=== PATIENT | female | born 1990 | race Caucasian/White ===

== ENCOUNTER 2022-03-29 18:19 | Inpatient (IN) | payer BC ==
[~2022-03-29 18:19] MED LIST: GASTROGRAFIN 30 ML BOT ONE; Iopamidol 300 61% 100 ML VIAL FS ONE
[2022-03-29] MEDS ORDERED: Ondansetron PF 4 MG/2 ML Vial ONE (18:57)
[2022-03-29] MEDS ORDERED: Morphine 4 MG/ML VIAL ONE (18:58)
[2022-03-29 19:01] LABS: BHCG - Serum Negative (NEGATIVE); Pregs Control Background? CLEAR/WHITE (CLR/WHITE); Pregs Control Bar Appear? YES (CONTROL BAR)
[2022-03-29 19:04] LABS: #Basophils 0.1 10x3/uL (0.0-0.2); #Eosinphils 0.2 10x3/uL (0.0-0.5); #Monocytes 0.5 10x3/uL (0.0-1.1); %Basophils 1.1 % (0.0-2.0); %Eosinophils 3.7 % (0.0-6.0); %Lymphocytes 21.5 % (18.0-47.0); %Monocytes 7.7 % (0.0-10.0); %Neutrophils 65.7 % (40.0-75.0); Hemoglobin 11.9 g/dL (12.0-15.5); Mean Corpuscular HGB CONC 33.8 g/dL (32.0-36.0); Mean Corpuscular Hemoglobin 29.2 pg (27.0-33.0); Mean Corpuscular Volume 86.3 fl (81.6-98.3); Mean Platelet Volume 10.2 fl (7.4-10.4); Platelet Count 290 10x3/uL (150-450); Red Blood Cell (RBC) Count 4.08 10x6/uL (3.90-5.03); White Blood Cell (WBC) Count 6.1 10x3/uL (3.5-10.5)
[2022-03-29 19:07] LABS: ALT (SGPT) 319 U/L (8-55); AST (SGOT) 459 U/L (5-34); Albumin 4.7 g/dL (3.5-5.0); Alkaline Phosphatase 177 U/L (40-110); Anion Gap 14 mmol/L (10-20); BUN (Urea Nitrogen) 11 mg/dL (7.0-18.7); Bilirubin, Total 1.6 mg/dL (0.2-1.2); Calc. Creatinine Clearance 0 mL/min (70-130); Calcium 9.3 mg/dL (7.8-10.44); Carbon Dioxide 24 mmol/L (22-29); Chloride 105 mmol/L (98-107); Estimated GFR 102; Globulin 3.5 g/dL (2.4-3.5); Glucose 100 mg/dL (70-105); Potassium 3.6 mmol/L (3.5-5.1); Protein, Total 8.2 g/dL (6.0-8.3); Sodium 139 mmol/L (136-145)
[2022-03-29 19:18] LABS: Lipase 2624 U/L (8-78)
[2022-03-29 19:56] LABS: Bilirubin Neg (Negative); Blood, Urine 50 (Negative); Clarity Clear (Clear); Glucose, Urine (Dipstick) Normal (Negative); Ketone, Urine Negative (Negative); Leukocyte Negative (Negative); Nitrite Negative (Negative); Protein, Urine (Dipstick) Negative (Neg-Trace); Urobilinogen Normal mg/dL (Less than 2); pH, Urine 6.5 (5.0-9.0)
[2022-03-29 20:19] LABS: Bacteria/HPF 1+ HPF (None Seen); Squamous Epithelial 0-3 HPF (0-3); WBC/HPF 0-3 HPF (0-3)
[2022-03-29] MEDS ORDERED: Senokot S 8.6-50 MG TAB PO PRN (20:50)
[2022-03-29] MEDS ORDERED: Guaifenesin DM 100-10/5 ML UDCUP PO PRN (20:50)
[2022-03-29] MEDS ORDERED: Calcium Carbonate 500 MG ChewTAB PO PRN (20:50)
[2022-03-29 21:37] LABS: SARS-CoV-2 NAA Rapid Test Not Detected (NotDetected)
[2022-03-29] MEDS ORDERED: Piperacillin/Tazobactam 4.5 GM VIAL ONE (22:48)
[2022-03-30] MEDS ORDERED: Morphine 2 MG/ML VIAL SLOW IVP PRN (00:03)
[2022-03-30] MEDS ORDERED: Famotidine/PF 20 mg/2ml Vial SLOW IVP SCH (00:15)
[2022-03-30] MEDS: Morphine 4 MG/ML VIAL SLOW IVP PRN ×3 (00:18→16:23)
[2022-03-30] MEDS: Dextrose 5%-Lactated Ringers 1,000 ML IV SCH ×3 (00:20→17:27)
[2022-03-30] MEDS ORDERED: Lactated Ringer's 500 ML IV SCH (00:30)
[2022-03-30] MEDS ORDERED: FLU VACC QS2022-23(6MOS UP)/PF 60 MCG/0.5 ML SYRINGE IM ONE (01:45)
[2022-03-30 06:29] LABS: #Eosinphils 0.2 10x3/uL (0.0-0.5); #Monocytes 0.5 10x3/uL (0.0-1.1); #Neutrophils 2.1 10x3/uL (1.5-8.4); %Basophils 1.1 % (0.0-2.0); %Eosinophils 4.8 % (0.0-6.0); %Lymphocytes 25.1 % (18.0-47.0); %Monocytes 12.5 % (0.0-10.0); %Neutrophils 56.2 % (40.0-75.0); Hemoglobin 9.8 g/dL (12.0-15.5); Mean Corpuscular HGB CONC 33.1 g/dL (32.0-36.0); Mean Corpuscular Hemoglobin 28.5 pg (27.0-33.0); Mean Platelet Volume 10.7 fl (7.4-10.4); Platelet Count 197 10x3/uL (150-450); RBC Distribution Width 13.2 % (11.5-14.5); Red Blood Cell (RBC) Count 3.44 10x6/uL (3.90-5.03); White Blood Cell (WBC) Count 3.8 10x3/uL (3.5-10.5)
[2022-03-30 07:09] LABS: ALT (SGPT) 404 U/L (8-55); AST (SGOT) 444 U/L (5-34); Albumin 3.5 g/dL (3.5-5.0); Alkaline Phosphatase 170 U/L (40-110); Anion Gap 11 mmol/L (10-20); BUN (Urea Nitrogen) 9 mg/dL (7.0-18.7); Bilirubin, Total 0.9 mg/dL (0.2-1.2); Calc. Creatinine Clearance 111 mL/min (70-130); Calcium 8.3 mg/dL (7.8-10.44); Carbon Dioxide 24 mmol/L (22-29); Cardiac Risk 2.2 (Less than 4.5); Chloride 108 mmol/L (98-107); Cholesterol 140 mg/dl (< 200 Desired); Estimated GFR 112; Globulin 2.5 g/dL (2.4-3.5); Glucose 114 mg/dL (70-105); HDL Cholesterol 63 mg/dL (>60 Neg Risk); LDL Cholesterol, Calculated 69 mg/dL; Lipase Greater than 1000 U/L (8-78); Potassium 3.8 mmol/L (3.5-5.1); Sodium 139 mmol/L (136-145); Triglycerides 39 mg/dL (Less than 150)
[2022-03-30 08:07] LABS: Hep B Surf Ag NonReactive S/CO (NonReactive)
[2022-03-30] MEDS: Ondansetron PF 4 MG/2 ML Vial IVP PRN ×2 (09:19→16:23)
[2022-03-30] MEDS: Enoxaparin Sodium 40 MG/0.4 ML SYRINGE SC SCH (09:20)
[2022-03-30] MEDS: Famotidine/PF 20 mg/2ml Vial SLOW IVP SCH ×2 (09:20→21:04)
[2022-03-30 13:47] LABS: HBCM Index 0.09 S/CO (0-0.79); Hep A IgM AB Non-Reactive (NonReactive); Hep A IgM S/CO 0.21 S/CO (0-0.79); Hep C IgG Ab Non-Reactive (NonReactive); Hep C Index 0.11 S/CO (0-0.79); Hepatitis B Core IgM Abs Non-Reactive (NonReactive)
[2022-03-30] MEDS ORDERED: Acetaminophen 325 MG TAB PO SCH (19:45)
[2022-03-31] MEDS: Dextrose 5%-Lactated Ringers 1,000 ML IV SCH ×3 (00:52→17:47)
[2022-03-31 02:37] VITALS: BMI 21.1
[2022-03-31 06:17] LABS: ALT (SGPT) 292 U/L (8-55); AST (SGOT) 133 U/L (5-34); Albumin 3.6 g/dL (3.5-5.0); Alkaline Phosphatase 145 U/L (40-110); Anion Gap 9 mmol/L (10-20); BUN (Urea Nitrogen) 5 mg/dL (7.0-18.7); Bilirubin, Total 0.4 mg/dL (0.2-1.2); Calc. Creatinine Clearance 119 mL/min (70-130); Calcium 8.7 mg/dL (7.8-10.44); Carbon Dioxide 28 mmol/L (22-29); Chloride 106 mmol/L (98-107); Estimated GFR 120; Globulin 2.3 g/dL (2.4-3.5); Glucose 117 mg/dL (70-105); Lipase 234 U/L (8-78); Potassium 3.8 mmol/L (3.5-5.1); Protein, Total 5.9 g/dL (6.0-8.3); Sodium 139 mmol/L (136-145)
[2022-03-31 06:38] LABS: #Eosinphils 0.2 10x3/uL (0.0-0.5); #Monocytes 0.4 10x3/uL (0.0-1.1); #Neutrophils 1.1 10x3/uL (1.5-8.4); %Basophils 1.3 % (0.0-2.0); %Lymphocytes 42.3 % (18.0-47.0); %Monocytes 14.8 % (0.0-10.0); %Neutrophils 36.6 % (40.0-75.0); Hemoglobin 9.3 g/dL (12.0-15.5); Mean Corpuscular HGB CONC 32.6 g/dL (32.0-36.0); Mean Corpuscular Hemoglobin 28.4 pg (27.0-33.0); Mean Corpuscular Volume 87.2 fl (81.6-98.3); Mean Platelet Volume 10.7 fl (7.4-10.4); Platelet Count 204 10x3/uL (150-450); RBC Distribution Width 13.2 % (11.5-14.5); Red Blood Cell (RBC) Count 3.27 10x6/uL (3.90-5.03)
[2022-03-31] MEDS: Enoxaparin Sodium 40 MG/0.4 ML SYRINGE SC SCH (09:05)
[2022-03-31] MEDS: Famotidine/PF 20 mg/2ml Vial SLOW IVP SCH (09:05)
[2022-03-31] MEDS ORDERED: Bupivacaine 0.25% HCL 30 ML VIAL ONE (10:10)
[2022-03-31] MEDS ORDERED: EPINEPHrine 1 MG/ML AMP ONE (10:10)
[2022-03-31] MEDS ORDERED: Iopamidol 0 ML ONE (10:10)
[2022-03-31] MEDS ORDERED: PROPOFOL 20 ML ONE (11:33)
[2022-03-31] MEDS ORDERED: Fentanyl 100 MCG/2 ML VIAL ONE ×2 (11:34→13:22)
[2022-03-31] MEDS ORDERED: CEFAZOLIN 2 GM VIAL ONE (11:40)
[2022-03-31] MEDS ORDERED: Midazolam HCl 2 mg/2 ml Vial ONE (11:44)
[2022-03-31] MEDS ORDERED: ePHEDrine Sulfate 50 MG/10 ML VIAL ONE (12:12)
[2022-03-31] MEDS ORDERED: PHENYLEPHRINE-NS 100 MCG/ML 10 ML SYRINGE ONE (12:14)
[2022-03-31] MEDS ORDERED: Dexamethasone 4 mg/ml Vial ONE (12:23)
[2022-03-31] MEDS ORDERED: Ketorolac Tromethamine 30 MG/ML VIAL ONE (12:23)
[2022-03-31] MEDS ORDERED: Ondansetron PF 4 MG/2 ML Vial ONE (12:23)
[2022-03-31] MEDS ORDERED: Iopamidol 30 ML ONE (13:00)
[2022-03-31] MEDS ORDERED: Glycopyrrolate 0.2 MG/ML 5 ML SYRINGE ONE (13:16)
[2022-03-31] MEDS: Ondansetron PF 4 MG/2 ML Vial IVP PRN (14:29)
[2022-03-31] MEDS: Morphine 4 MG/ML VIAL SLOW IVP PRN (14:30)
[2022-03-31] MEDS ORDERED: Ketorolac Tromethamine 30 MG/ML VIAL IVP PRN (16:17)
[2022-03-31] MEDS ORDERED: HYDROcodone/Acetaminophen 10/325 mg Tablet PO PRN (16:17)
[2022-03-31 21:36] VITALS: BP 115/59; TEMP 97.8
== END 2022-03-31 19:30 | disposition home or self-care (01) | DRG 419 ==
LOC: CSHERS 18:19 → CSHTELE 20:40
PROVIDERS: ADMIT Student in an Organized Health Care Education/Training Program; ATTEND Family Medicine
PROC: 0FT44ZZ Resection of Gallbladder, Percutaneous Endoscopic Approach (ICD-10-PCS; principal; 2022-03-31)
PROC: BF031ZZ Plain Radiography of Gallbladder and Bile Ducts using Low Osmolar Contrast (ICD-10-PCS; 2022-03-31)
DX: K85.10 Biliary acute pancreatitis without necrosis or infection (principal); Z20.822 Contact with and (suspected) exposure to COVID-19; K80.20 Calculus of gallbladder without cholecystitis without obstruction; D64.9 Anemia, unspecified; Z98.84 Bariatric surgery status
CPT/HCPCS: 36415; 47532; 74177; 74181; 76705; 80053; 80061; 80074; 81003; 81015; 83690; 84703; 85025; 88304; 96374; 96375; C1889; J0171; J1100; J1610; J1885; J2250; J2270; J2405; J2543; J2704; J3010; J7120; Q9963; Q9967; S0020; S0028; U0002